=== PATIENT | male | born 1985 | race African-American/Black ===

== ENCOUNTER 2016-09-29 15:17 | Emergency (ER) | payer OTHER ==
[~2016-09-29] VITALS: Ht 205.7 cm; Wt 108.0 kg
[~2016-09-29 15:17] MED LIST: CIPR500T4 PO; CLOB60CR2 TOP; HYDR-906 PO; METR500T PO; ONDA4TAB8 PO
[2016-09-29 15:19] VITALS: Ht 205.7 cm; Wt 108.0 kg
[2016-09-29] MEDS ORDERED: ONDANSETRON 4 MG INJ IV STA (16:13)
[2016-09-29] MEDS ORDERED: SOD CHLORIDE 0.9% 1,000 ML IV STA (16:13)
[2016-09-29] MEDS ORDERED: HYDROmorphONE 1 MG/ML SYG IV STA (16:13)
[2016-09-29 16:51] LABS: ADD SCAN DIFF NO
[2016-09-29 16:52] LABS: BASOPHILS % 0.2 % (0.0-2.0); EOSINOPHILS % 0.5 % (0.0-7.0); HEMATOCRIT 42.3 % (42.0-52.0); HEMOGLOBIN 13.8 g/dl (14.0-18.0); LYMPHOCYTES # 1.9 10^3/ul (0.8-2.9); LYMPHOCYTES % 28.3 % (15.0-51.0); MEAN CORPUSCULAR HEMOGLOBIN 28.5 pg (29.0-33.0); MEAN CORPUSCULAR HGB CONC 32.6 g/dl (32.0-37.0); MEAN CORPUSCULAR VOLUME 87.2 fl (82.0-101.0); MEAN PLATELET VOLUME 9.8 fl (7.4-10.4); MONOCYTE # 0.4 10^3/ul (0.3-0.9); MONOCYTES % 5.9 % (0.0-11.0); NEUTROPHIL # 4.3 10^3/ul (1.6-7.5); NEUTROPHILS % 64.9 % (39.0-77.0); PLATELET COUNT 271 10^3/UL (140-415); RED BLOOD COUNT 4.85 10^6/ul (4.70-6.10); RED CELL DISTRIBUTION WIDTH 14.6 % (11.5-14.5); WHITE BLOOD COUNT 6.6 10^3/ul (4.8-10.8)
[2016-09-29 17:06] LABS: ALBUMIN 4.2 g/dl (3.3-4.9)
[2016-09-29 17:07] LABS: POTASSIUM 3.8 mmol/L (3.5-5.1)
[2016-09-29 17:09] LABS: BILIRUBIN,INDIRECT 0.3 mg/dl (0-1.1); BILIRUBIN,TOTAL 0.3 mg/dl (0.2-1.3); CREATININE 1.24 mg/dl (0.61-1.24)
[2016-09-29 17:10] LABS: ALBUMIN/GLOBULIN RATIO 1.23; CALCIUM 9.2 mg/dl (8.4-10.2); TOTAL PROTEIN 7.6 g/dl (6.1-8.1)
[2016-09-29] MEDS ORDERED: IOHEXOL 300MG/ML 30 ML BTL ONE (17:43)
[2016-09-29] MEDS ORDERED: SOD CHLORIDE 0.9% 100 ML ONE (17:43)
--- NOTE | 2016-09-29 18:02 | RADRPT ---
PROCEDURE: CT Abdomen and Pelvis with contrast. CLINICAL INDICATION: Abdomen and pelvis pain. TECHNIQUE: CT scan of the abdomen and pelvis with contrast was performed. The patient was scanned following the uncomplicated intravenous administration of 100 cc of Omnipaque-300. Coronal and sag ittal reformatted images were obtained from the axial source images. Images were reviewed on a high- resolution PACS workstation. Total exam DLP is 926.58 mGy-cm. CTDIvol is 14.58 mGy. One or more o f the following dose reduction techniques were used: Automated exposure control, adjustment of the m A and/or kV according to patient size, use of iterative reconstruction technique. COMPARISON: CT scan of the abdomen and pelvis dated 05/19/2014. Right upper quadrant abdomen ultr asound dated 03/13/2016. FINDINGS: The lung bases are normal. There is no pleural effusion. The liver is normal in size and attenuation. There is no focal hepatic lesion. The gallbladder and bile ducts are normal. The spleen is normal in size. There is no focal splenic lesion. Both adrenals are normal with no enlargement or mass. The pancreas is unremarkable with no mass or evidence of pancreatitis. Both kidneys demonstrate normal contrast enhancement. There is no renal mass or hydronephrosis. The abdominal aorta is not dilated. There is no retroperitoneal lymphadenopathy or mass. There is no pelvic lymphadenopathy or mass. The bladder and distal ureters are normal. The periappendiceal region is unremarkable with no evidence of appendicitis. The appendix is well se en and appears normal. The bowel and mesentery are normal. There is no free fluid or free gas. The osseous structures are unremarkable with no fracture or lytic lesion. IMPRESSION: 1. No urinary tract calculus or hydronephrosis. 2. No evidence of appendicitis. 3. Unremarkable CT scan of the abdomen and pelvis. RPTAT: QQ .Lionel Martinez MD, MD Date Time Electronically viewed and signed by .Lionel Martinez MD, on 09/29/2016 18:02 .R/
--- NOTE | 2016-09-29 18:20 | ERD ---
ER Documentation Chief Complaint Date/Time DATE: 09/29/16 TIME: 18:17 Chief Complaint N/V with constipation x 2 days HPI This a 30-year-old complains of day 2 of bilateral lower abdominal pain is described as colicky with nausea vomiting and diarrhea. Nausea and vomiting and diarrhea are nonbloody nonbilious. Pain is intermittent. Pain is nonradiating. Patient states she has had these symptoms 10-12 times in the past. No fever no back pain no dysuria no hematuria no cough. ROS All systems reviewed and are negative except as per history of present illness. Medications Home Meds Active Scripts Clobetasol Propionate* (Clobetasol Propionate*) 60 Gm Cream.gm., 1 APPLIC TOP BID, #1 TUB Prov:PAVITHRA HOOD PA-C 03/13/16 Metronidazole* (Flagyl*) 500 Mg Tablet, 500 MG PO TID for 10 Days, TAB Prov:PAVITHRA HOOD PA-C 03/13/16 Ciprofloxacin Hcl* (Ciprofloxacin Hcl*) 500 Mg Tablet, 500 MG PO BID for 10 Days , TAB Prov:PAVITHRA HOOD PA-C 03/13/16 Ondansetron Hcl* (Zofran*) 4 Mg Tablet, 4 MG PO Q6H for NAUSEA AND/OR VOMITING, #30 TAB Prov:PAVITHRA HOOD PA-C 03/13/16 Hydrocodone/Acetaminophen ([place] 5-325 Tablet) 1 Each Tablet, 1 TAB PO Q6H Y for PAIN, #7 TAB Prov:PAVITHRA HOOD PA-C 03/13/16 Allergies Allergies: Coded Allergies: Penicillins (Verified Allergy, Unknown, anaphalix, 09/29/16) PMhx/Soc History of Surgery: No Anesthesia Reaction: No Hx Neurological Disorder: No Hx Respiratory Disorders: No Hx Cardiac Disorders: No Hx Psychiatric Problems: No Hx Miscellaneous Medical Probl: No Hx Alcohol Use: Yes Hx Substance Use: No Hx Tobacco Use: No FmHx Family History: No coronary disease Physical Exam Vitals Vital Signs Date Time Temp Pulse Resp B/P Pulse Ox O2 Delivery O2 Flow Rate FiO2 09/29/16 15:19 98.5 97 18 119/64 97 Physical Exam Const: Well-developed, well-nourished Head: Atraumatic, normocephalic Eyes: Normal Conjunctiva, PERRLA, EOMI, normal sclera, no nystagmus ENT: Normal External Ears, Nose and Mouth, moist mucus membranes. Neck: Full range of motion. No meningismus, no lymphadenopathy. Resp: Clear to auscultation bilaterally, no wheezing, rhonchi, rales Cardio: Regular rate and rhythm, no murmurs, S1 S2 present Abd: Soft, mild bilateral lower quadrant tenderness, non distended. Normal bowel sounds, no guarding or rebound, no pulsitile abdominal masses or bruits Skin: No petechiae or rashes, no ecchymosis , no maculopapular rash Back: No midline or flank tenderness Ext: No cyanosis, or edema, FROM x 4, normal inspection, neurovascularly intact x 4 Neur: Awake and alert, STR 5/5 x 4, sensation intact x 4, no focal findings, cerebellum intact Psych: Normal Mood and Affect Result Diagram: 09/29/16 1641 09/29/16 1641 Results 24 hrs Laboratory Tests Test 09/29/16 16:41 White Blood Count 6.610^3/ul Red Blood Count 4.8510^6/ul Hemoglobin 13.8g/dl Hematocrit 42.3% Mean Corpuscular Volume 87.2fl Mean Corpuscular Hemoglobin 28.5pg Mean Corpuscular Hemoglobin Concent 32.6g/dl Red Cell Distribution Width 14.6% Platelet Count 50206^3/UL Mean Platelet Volume 9.8fl Neutrophils % 64.9% Lymphocytes % 28.3% Monocytes % 5.9% Eosinophils % 0.5% Basophils % 0.2% Nucleated Red Blood Cells % 0.0/100WBC Neutrophils # 4.310^3/ul Lymphocytes # 1.910^3/ul Monocytes # 0.410^3/ul Eosinophils # 0.010^3/ul Basophils # 0.010^3/ul Nucleated Red Blood Cells # 0.010^3/ul Sodium Level 141mmol/L Potassium Level 3.8mmol/L Chloride Level 104mmol/L Carbon Dioxide Level 27mmol/L Anion Gap 14 Blood Urea Nitrogen 10mg/dl Creatinine 1.24mg/dl Glucose Level 87mg/dl Calcium Level 9.2mg/dl Total Bilirubin 0.3mg/dl Direct Bilirubin 0.00mg/dl Indirect Bilirubin 0.3mg/dl Aspartate Amino Transf (AST/SGOT) 25IU/L Alanine Aminotransferase (ALT/SGPT) 20IU/L Alkaline Phosphatase 48IU/L Total Protein 7.6g/dl Albumin 4.2g/dl Globulin 3.40g/dl Albumin/Globulin Ratio 1.23 Lipase 62U/L Current Medications Medications (Trade) Dose Ordered Sig/Adriana Route PRN Reason Start Time Stop Time Status Last Admin Dose Admin Sodium Chloride (NS) 1,000 ml @ 1,000 mls/hr Q1H STAT IV 09/29/16 16:13 09/29/16 17:12 DC 09/29/16 16:32 Hydromorphone HCl (Dilaudid) 1 mg ONCE STAT IV 09/29/16 16:13 09/29/16 16:15 DC 09/29/16 16:31 Ondansetron HCl (Zofran Inj) 4 mg ONCE STAT IV 09/29/16 16:13 09/29/16 16:15 DC 09/29/16 16:31 IV Flush 10 ml 10 ml STK-MED ONCE .ROUTE 09/29/16 17:43 09/29/16 17:44 DC Sodium Chloride (NS) 100 ml @ ud STK-MED ONCE .ROUTE 09/29/16 17:43 09/29/16 17:44 DC Iohexol (Omnipaque 300mg/ ml) 30 ml STK-MED ONCE .ROUTE 09/29/16 17:43 09/29/16 17:44 DC Procedures/MDM PROCEDURE: CT Abdomen and Pelvis with contrast. CLINICAL INDICATION: Abdomen and pelvis pain. TECHNIQUE: CT scan of the abdomen and pelvis with contrast was performed. The patient was scanned following the uncomplicated intravenous administration of 100 cc of Omnipaque-300. Coronal and sagittal reformatted images were obtained from the axial source images. Images were reviewed on a high- resolution PACS workstation. Total exam DLP is 926.58 mGy-cm. CTDIvol is 14.58 mGy. One or more of the following dose reduction techniques were used: Automated exposure control, adjustment of the mA and/or kV according to patient size, use of iterative reconstruction technique. COMPARISON: CT scan of the abdomen and pelvis dated 05/19/2014. Right upper quadrant abdomen ultrasound dated 03/13/2016. FINDINGS: The lung bases are normal. There is no pleural effusion. The liver is normal in size and attenuation. There is no focal hepatic lesion. The gallbladder and bile ducts are normal. The spleen is normal in size. There is no focal splenic lesion. Both adrenals are normal with no enlargement or mass. The pancreas is unremarkable with no mass or evidence of pancreatitis. Both kidneys demonstrate normal contrast enhancement. There is no renal mass or hydronephrosis. The abdominal aorta is not dilated. There is no retroperitoneal lymphadenopathy or mass. There is no pelvic lymphadenopathy or mass. The bladder and distal ureters are normal. The periappendiceal region is unremarkable with no evidence of appendicitis. The appendix is well seen and appears normal. The bowel and mesentery are normal. There is no free fluid or free gas. The osseous structures are unremarkable with no fracture or lytic lesion. IMPRESSION: 1. No urinary tract calculus or hydronephrosis. 2. No evidence of appendicitis. 3. Unremarkable CT scan of the abdomen and pelvis. RPTAT: QQ .Lionel Martinez MD, MD Date Time Electronically viewed and signed by .Lionel Martinez MD, MD on 09/29/2016 18:02 .R/ CC: ZHANG NICOLAS DO Patient is had these symptoms 2 and 12 times in the past he may have some type of IBD and recommended him seeing a party plan sales unit advisor for colonoscopy. He also may have some type of food intolerance. We will treat symptomatically Departure Diagnosis: Primary Impression: Abdominal pain Abdominal location: lower abdomen, unspecified Qualified Code: R10.30 - Lower abdominal pain Additional Impression: Vomiting and diarrhea Condition: Stable ZHANG NICOLAS DO Sep 29, 2016 18:20
[2016-09-29] MEDS ORDERED: ONDA4TAB14 PO (18:23)
[2016-09-29] MEDS ORDERED: DIPH1TAB PO (18:23)
[2016-09-29] MEDS ORDERED: HYDR-902 PO (18:23)
[2016-09-29 18:50] VITALS: BP 119/64; RESP 20
== END 2016-09-29 18:51 | disposition home or self-care (01) ==
LOC: FTE 15:17
DX: R10.30 Lower abdominal pain, unspecified (principal); R11.10 Vomiting, unspecified; R19.7 Diarrhea, unspecified
CPT/HCPCS: 36415; 74177; 80053; 83690; 85025; 96374; 96375; J1170; J2405; J7030; Q9967; Z7502; Z7610

== ENCOUNTER 2017-01-31 10:14 | Emergency (ER) | payer OTHER ==
[~2017-01-31] VITALS: Wt 107.5 kg
[~2017-01-31 10:14] MED LIST changes: +DIPH1TAB PO; +HYDR-902 PO; +ONDA4TAB14 PO
[2017-01-31] MEDS ORDERED: morphine 4 MG/ML VIAL IV STA (10:53)
[2017-01-31] MEDS ORDERED: ONDANSETRON 4 MG INJ IV STA (10:53)
[2017-01-31 11:15] LABS: BASOPHILS % 0.4 % (0.0-2.0); EOSINOPHILS # 0.1 10^3/ul (0.0-0.5); HEMATOCRIT 44.1 % (42.0-52.0); HEMOGLOBIN 14.6 g/dl (14.0-18.0); LYMPHOCYTES # 1.9 10^3/ul (0.8-2.9); LYMPHOCYTES % 26.2 % (15.0-51.0); MEAN CORPUSCULAR HEMOGLOBIN 28.1 pg (29.0-33.0); MEAN CORPUSCULAR HGB CONC 33.1 g/dl (32.0-37.0); MEAN PLATELET VOLUME 9.7 fl (7.4-10.4); MONOCYTE # 0.5 10^3/ul (0.3-0.9); MONOCYTES % 6.6 % (0.0-11.0); NEUTROPHILS % 65.4 % (39.0-77.0); PLATELET COUNT 287 10^3/UL (140-415); RED BLOOD COUNT 5.19 10^6/ul (4.70-6.10); RED CELL DISTRIBUTION WIDTH 14.2 % (11.5-14.5); WHITE BLOOD COUNT 7.2 10^3/ul (4.8-10.8)
[2017-01-31 11:24] LABS: ADD UMIC NO; UR ASCORBIC ACID NEGATIVE (NEGATIVE); UR BILIRUBIN (Dip) NEGATIVE (NEGATIVE); UR BLOOD (Dip) NEGATIVE (NEGATIVE); UR CLARITY CLEAR (CLEAR); UR COLOR YELLOW (YELLOW); UR GLUCOSE (Dip) NEGATIVE (NEGATIVE); UR KETONES (Dip) NEGATIVE (NEGATIVE); UR LEUKOCYTE ESTERASE (Dip) NEGATIVE Leu/ul (NEGATIVE); UR NITRITE (Dip) NEGATIVE (NEGATIVE); UR SPECIFIC GRAVITY (Dip) 1.019 (1.003-1.030); UR TOTAL PROTEIN (Dip) NEGATIVE (NEGATIVE); UR UROBILINOGEN (Dip) NEGATIVE (NEGATIVE)
[2017-01-31 11:43] LABS: ALBUMIN 4.9 g/dl (3.3-4.9); ALBUMIN/GLOBULIN RATIO 1.32; BILIRUBIN,INDIRECT 0.4 mg/dl (0-1.1); BILIRUBIN,TOTAL 0.4 mg/dl (0.2-1.3); CALCIUM 9.6 mg/dl (8.4-10.2); CREATININE 0.91 mg/dl (0.61-1.24); POTASSIUM 4.4 mmol/L (3.5-5.1); TOTAL PROTEIN 8.6 g/dl (6.1-8.1)
[2017-01-31] MEDS ORDERED: FAMOTIDINE 20 MG TAB PO ONE (12:00)
--- NOTE | 2017-01-31 12:12 | ERD ---
ER Documentation Chief Complaint Date/Time DATE: 01/31/17 TIME: 12:08 Chief Complaint ABD PAIN, NAUSEA, VOMITING, ONSET THIS AM HPI Is a 31-year-old male who presents the emergency department today complaining of sharp abdominal pain that started this morning as well as persistent vomiting. States he has had this several times in the past. States that this feels the same. . States he smokes marijuana occasionally.Denies any fevers, diarrhea, dysuria. ROS All systems reviewed and are negative except as per history of present illness. Medications Home Meds Active Scripts Electrolyte,Oral (Pedialyte) 1,000 Ml Solution, 100 ML PO Q6 Y for VOMITTING, # 1000 ML Prov:ABBIE JEFFRIES PA-C 01/31/17 Famotidine* (Pepcid*) 20 Mg Tablet, 20 MG PO BID for 14 Days, TAB Prov:ABBIE JEFFRIES PA-C 01/31/17 Ondansetron Hcl* (Zofran*) 4 Mg Tablet, 4 MG PO Q6H for NAUSEA AND/OR VOMITING, #30 TAB Prov:ABBIE JEFFRIES PA-C 01/31/17 Acetaminophen* (Tylophen*) 500 Mg Capsule, 1 CAP PO Q6H Y for PAIN AND OR ELEVATED TEMP, #30 CAP Prov:ABBIE JEFFRIES PA-C 01/31/17 Diphenoxylate HCl/Atropine (Lomotil 2.5-0.025 mg Tablet) 1 Each Tablet, 1 TAB PO QID Y for DIARRHEA, #10 TAB Prov:ZHANG NICOLAS DO 09/29/16 Ondansetron (Ondansetron Odt) 4 Mg Tab.rapdis, 4 MG PO Q6H Y for NAUSEA AND/OR VOMITING, #10 TAB Prov:ZAHNG NICOLAS DO 09/29/16 Hydrocodone/Acetaminophen ([place] 10-325 Tablet) 1 Each Tablet, 1 TAB PO Q6H Y for PAIN, #20 TAB Prov:MARINA NICOLASSTDICK Villatoro DO 09/29/16 Clobetasol Propionate* (Clobetasol Propionate*) 60 Gm Cream.gm., 1 APPLIC TOP BID, #1 TUB Prov:PAVITHRA HOOD PA-C 03/13/16 Metronidazole* (Flagyl*) 500 Mg Tablet, 500 MG PO TID for 10 Days, TAB Prov:PAVITHRA HOOD PA-C 03/13/16 Ciprofloxacin Hcl* (Ciprofloxacin Hcl*) 500 Mg Tablet, 500 MG PO BID for 10 Days , TAB Prov:PAVITHRA HOOD PA-C 03/13/16 Ondansetron Hcl* (Zofran*) 4 Mg Tablet, 4 MG PO Q6H for NAUSEA AND/OR VOMITING, #30 TAB Prov:PAVITHRA HOOD PA-C 03/13/16 Hydrocodone/Acetaminophen ([place] 5-325 Tablet) 1 Each Tablet, 1 TAB PO Q6H Y for PAIN, #7 TAB Prov:PAVITHRA HOOD PA-C 03/13/16 Allergies Allergies: Coded Allergies: Penicillins (Verified Allergy, Unknown, anaphalix, 09/29/16) PMhx/Soc History of Surgery: No Anesthesia Reaction: No Hx Neurological Disorder: No Hx Respiratory Disorders: No Hx Cardiac Disorders: No Hx Psychiatric Problems: No Hx Miscellaneous Medical Probl: No Hx Alcohol Use: Yes Hx Substance Use: No Hx Tobacco Use: No Physical Exam Vitals Vital Signs Date Time Temp Pulse Resp B/P Pulse Ox O2 Delivery O2 Flow Rate FiO2 01/31/17 10:16 98.2 83 18 136/100 98 Physical Exam Const: No acute distress Head: Atraumatic Eyes: Normal Conjunctiva ENT: Normal External Ears, Nose and Mouth. Neck: Full range of motion..~ No meningismus. Resp: Clear to auscultation bilaterally Cardio: Regular rate and rhythm, no murmurs Abd: Soft, epigastric, diffuse lower abdominal pain non distended. Normal bowel sounds. No specific tenderness McBurney's Skin: No petechiae or rashes Back: No midline or flank tenderness Ext: No cyanosis, or edema Neur: Awake and alert Psych: Normal Mood and Affect Result Diagram: 01/31/17 1100 01/31/17 1100 Results 24 hrs Laboratory Tests Test 01/31/17 11:00 White Blood Count 7.210^3/ul Red Blood Count 5.1910^6/ul Hemoglobin 14.6g/dl Hematocrit 44.1% Mean Corpuscular Volume 85.0fl Mean Corpuscular Hemoglobin 28.1pg Mean Corpuscular Hemoglobin Concent 33.1g/dl Red Cell Distribution Width 14.2% Platelet Count 31430^3/UL Mean Platelet Volume 9.7fl Neutrophils % 65.4% Lymphocytes % 26.2% Monocytes % 6.6% Eosinophils % 1.0% Basophils % 0.4% Nucleated Red Blood Cells % 0.0/100WBC Neutrophils # (Manual) 510^3/ul Lymphocytes # 1.910^3/ul Monocytes # 0.510^3/ul Eosinophils # 0.110^3/ul Basophils # 0.010^3/ul Nucleated Red Blood Cells # 0.010^3/ul Urine Color YELLOW Urine Clarity CLEAR Urine pH 7.0 Urine Specific [place] 1.019 Urine Ketones NEGATIVEmg/dL Urine Nitrite NEGATIVEmg/dL Urine Bilirubin NEGATIVEmg/dL Urine Urobilinogen NEGATIVEmg/dL Urine Leukocyte Esterase NEGATIVELeu/ul Urine Hemoglobin NEGATIVEmg/dL Urine Glucose NEGATIVEmg/dL Urine Total Protein NEGATIVEmg/dl Sodium Level 138mmol/L Potassium Level 4.4mmol/L Chloride Level 102mmol/L Carbon Dioxide Level 25mmol/L Anion Gap 15 Blood Urea Nitrogen 13mg/dl Creatinine 0.91mg/dl Glucose Level 96mg/dl Calcium Level 9.6mg/dl Total Bilirubin 0.4mg/dl Direct Bilirubin 0.00mg/dl Indirect Bilirubin 0.4mg/dl Aspartate Amino Transf (AST/SGOT) 40IU/L Alanine Aminotransferase (ALT/SGPT) 49IU/L Alkaline Phosphatase 47IU/L Total Protein 8.6g/dl Albumin 4.9g/dl Globulin 3.70g/dl Albumin/Globulin Ratio 1.32 Lipase 64U/L Current Medications Medications (Trade) Dose Ordered Sig/Adriana Route PRN Reason Start Time Stop Time Status Last Admin Dose Admin Morphine Sulfate (morphine) 4 mg ONCE STAT IV 01/31/17 10:53 01/31/17 10:56 DC 01/31/17 11:08 Ondansetron HCl (Zofran Inj) 4 mg ONCE STAT IV 01/31/17 10:53 01/31/17 10:56 DC 01/31/17 11:07 Famotidine (Pepcid) 20 mg ONCE ONCE PO 01/31/17 12:00 8/18/17 12:01 [place] 01/31/17 12:01 Procedures/[facility] This a 31-year-old male who presents to the emergency department today complaining of abdominal pain and vomiting that started this morning. Patient has had similar symptoms in the past. Upon review of patient's medical records patient was seen here in September 2016 for the same complaints and had a negative workup including a negative CT scan. Today on physical exam patient had epigastric and bilateral lower quadrant pain however no specific tenderness at McBurney's. Patient is afebrile and otherwise well-appearing. I did repeat laboratory workup today Laboratory work shows no elevated white blood cell count. He is not anemic. Platelets are within normal limits. Electrolytes are within normal limits. Glucose within normal limits. Liver enzymes are within normal limits. Lipase within normal limits. UA is negative for infection. Patient symptoms at this time is consistent with abdominal pain and vomiting of uncertain etiology. Have explained him that it may be also brought on by smoking marijuana. 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 I did discuss obtaining a CT scan with both the patient and patient has declined and Dr. Allen feel this is reasonable especially given patient's negative laboratory workup and nonspecific abdominal pain without fever. Low suspicion for acute surgical abdomen, pancreatitis, acute appendicitis Patient was given Zofran, Pepcid, morphine here in the emergency department and symptoms improved significantly. When I went back to check on the patient he was sitting up in another bed talking on his phone. He reported his pain was down from a 10 to a 2 on a pain scale Patient given a prescription for Pepcid, Zofran, Tylenol Pedialyte for home At this time the patient is stable for discharge and outpatient management. Patient should follow up with their PCP in the next 1-2 days. They may return to the emergency department sooner for any persistent or worsening of symptoms. Patient understood and agreed with the plan. Departure Diagnosis: Primary Impression: Abdominal pain Abdominal location: generalized Qualified Code: R10.84 - Generalized abdominal pain Additional Impression: Vomiting Vomiting type: unspecified Vomiting Intractability: non-intractable Nausea presence: unspecified Qualified Code: R11.10 - Non-intractable vomiting, presence of nausea not specified, unspecified vomiting type Condition: ABBIE Nelson PA-C Jan 31, 2017 12:12
[2017-01-31] MEDS ORDERED: ACET500C5 PO (12:15)
[2017-01-31] MEDS ORDERED: ONDA4TAB8 PO (12:15)
[2017-01-31] MEDS ORDERED: FAMO-96 PO (12:15)
[2017-01-31] MEDS ORDERED: ELEC100080 PO (12:17)
== END 2017-01-31 12:32 | disposition home or self-care (01) ==
LOC: FTE 10:14
DX: R10.84 Generalized abdominal pain (principal); R11.10 Vomiting, unspecified
CPT/HCPCS: 36415; 80053; 81003; 83690; 85025; 96374; 96375; J2270; J2405; Z7502; Z7610

== ENCOUNTER 2017-05-17 18:25 | Emergency (ER) | payer OTHER ==
[~2017-05-17] VITALS: Ht 208.3 cm; Wt 104.5 kg
[~2017-05-17 18:25] MED LIST changes: +ACET500C5 PO; +ELEC100080 PO; +FAMO-96 PO
[2017-05-17 18:35] VITALS: Ht 208.3 cm; Wt 104.5 kg
[2017-05-17] MEDS ORDERED: HYDROmorphONE 1 MG/ML SYG IV STA (18:56)
[2017-05-17] MEDS ORDERED: MAGNESIUM SULFATE 2 GM, MULTIVITAMINS 10 ML, THIAMINE 100 MG, FOLIC ACID 1 MG in SOD CH... IV STA (18:56)
[2017-05-17] MEDS ORDERED: ONDANSETRON 4 MG INJ IV STA ×2 (18:56→21:27)
[2017-05-17] MEDS ORDERED: FAMOTIDINE 20 MG INJ IV STA (18:56)
[2017-05-17] MEDS ORDERED: SOD CHLORIDE 0.9% 1,000 ML IV STA (18:56)
[2017-05-17 19:09] LABS: BASOPHILS % 0.1 % (0.0-2.0); EOSINOPHILS % 0.1 % (0.0-7.0); HEMOGLOBIN 13.4 g/dl (14.0-18.0); LYMPHOCYTES # 1.2 10^3/ul (0.8-2.9); LYMPHOCYTES % 8.1 % (15.0-51.0); MEAN CORPUSCULAR HEMOGLOBIN 28.2 pg (29.0-33.0); MEAN CORPUSCULAR HGB CONC 33.5 g/dl (32.0-37.0); MEAN CORPUSCULAR VOLUME 84.2 fl (82.0-101.0); MEAN PLATELET VOLUME 9.8 fl (7.4-10.4); MONOCYTE # 0.7 10^3/ul (0.3-0.9); MONOCYTES % 4.9 % (0.0-11.0); NEUTROPHIL # 12.6 10^3/ul (1.6-7.5); NEUTROPHILS % 86.5 % (39.0-77.0); PLATELET COUNT 278 10^3/UL (140-415); RED BLOOD COUNT 4.75 10^6/ul (4.70-6.10); RED CELL DISTRIBUTION WIDTH 13.2 % (11.5-14.5); WHITE BLOOD COUNT 14.6 10^3/ul (4.8-10.8)
--- NOTE | 2017-05-17 19:20 | ERD ---
ER Documentation Chief Complaint Chief Complaint HPI This is a 31-year-old male with a known history of alcoholic gastritis who consumes alcohol on a daily basis. His girlfriend brought him to the emergency department today as he developed a sudden onset of abdominal pain roughly for hours prior to arrival. 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 He stated the pain was persistent with no alleviating or exacerbating factors. The pain was not positional. He indicates this is similar nature to his previous episodes of alcoholic gastritis and has had multiple episodes of nonbloody nonbilious emesis over the past 4 hours. He has had no diarrhea. He had no hemoptysis hematemesis or melanotic stools. He states his last consumption of alcohol was roughly 10 hours prior to arrival. He denies any chest pain or pressure that radiates to the neck arm back or jaw. He denies any illicit drug use. He did not take any analgesic medication prior to arrival but did take Zofran with no improvement of his symptoms. ROS All systems reviewed and are negative except as per history of present illness. Medications Home Meds Active Scripts Electrolyte,Oral (Pedialyte) 1,000 Ml Solution, 100 ML PO Q6 Y for VOMITTING, # 1000 ML Prov:ABBIE JEFFRIES PA-C 01/31/17 Famotidine* (Pepcid*) 20 Mg Tablet, 20 MG PO BID for 14 Days, TAB Prov:ABBIE JEFFRIES PA-C 01/31/17 Ondansetron Hcl* (Zofran*) 4 Mg Tablet, 4 MG PO Q6H for NAUSEA AND/OR VOMITING, #30 TAB Prov:ABBIE JEFFRIES PA-C 01/31/17 Acetaminophen* (Tylophen*) 500 Mg Capsule, 1 CAP PO Q6H Y for PAIN AND OR ELEVATED TEMP, #30 CAP Prov:ABBIE JEFFRIES PA-C 01/31/17 Diphenoxylate HCl/Atropine (Lomotil 2.5-0.025 mg Tablet) 1 Each Tablet, 1 TAB PO QID Y for DIARRHEA, #10 TAB Prov:ZHANG NICOLAS DO 09/29/16 Ondansetron (Ondansetron Odt) 4 Mg Tab.rapdis, 4 MG PO Q6H Y for NAUSEA AND/OR VOMITING, #10 TAB Prov:THANIASEVERINOMARINA SANCHEZCHERRY Zeinab. DO 09/29/16 Hydrocodone/Acetaminophen ([place] 10-325 Tablet) 1 Each Tablet, 1 TAB PO Q6H Y for PAIN, #20 TAB Prov:TARSHA NICOLASEVANSheila Arriola. DO 09/29/16 Clobetasol Propionate* (Clobetasol Propionate*) 60 Gm Cream.gm., 1 APPLIC TOP BID, #1 TUB Prov:PAVITHRA HOOD PA-C 03/13/16 Metronidazole* (Flagyl*) 500 Mg Tablet, 500 MG PO TID for 10 Days, TAB Prov:PAVITHRA HOOD PA-C 03/13/16 Ciprofloxacin Hcl* (Ciprofloxacin Hcl*) 500 Mg Tablet, 500 MG PO BID for 10 Days , TAB Prov:PAVITHRA HOOD PA-C 03/13/16 Ondansetron Hcl* (Zofran*) 4 Mg Tablet, 4 MG PO Q6H for NAUSEA AND/OR VOMITING, #30 TAB Prov:PAVITHRA HOOD PA-C 03/13/16 Hydrocodone/Acetaminophen ([place] 5-325 Tablet) 1 Each Tablet, 1 TAB PO Q6H Y for PAIN, #7 TAB Prov:PAVITHRA HOOD PA-C 03/13/16 Allergies Allergies: Coded Allergies: Penicillins (Verified Allergy, Unknown, anaphalix, 09/29/16) PMhx/Soc History of Surgery: No Anesthesia Reaction: No Hx Neurological Disorder: No Hx Respiratory Disorders: No Hx Cardiac Disorders: No Hx Psychiatric Problems: No Hx Miscellaneous Medical Probl: No Hx Alcohol Use: No Hx Substance Use: No Hx Tobacco Use: No Physical Exam Vitals Vital Signs Date Time Temp Pulse Resp B/P Pulse Ox O2 Delivery O2 Flow Rate FiO2 05/17/17 20:00 53 17 135/89 99 05/17/17 18:35 98.6 60 16 162/92 99 05/17/17 18:30 98.6 60 16 162/92 99 Room Air Physical Exam Constitutional:Well-developed. Well-nourished. HEENT:Normocephalic. Atraumatic.Pupils were equal round reactive to light. Moist mucous membranes.No tonsillar exudates. Neck: No nuchal rigidity. No lymphadenopathy. No posterior cervical spine tenderness or step-offs. Respiratory: Not using accessory muscles of respiration.Lungs were clear to auscultation bilaterally. No rhonchi. No rales. No wheezing. Cardiovascular: Regular rate regular rhythm.No murmurs. No rubs were appreciated.S1, S2 normal. Distal pulses are palpable 2+ bilaterally. GI: Abdomen was soft. Tenderness in the epigastric region. No tenderness in the right upper quadrant negative Lawrence sign and no tenderness over McBurney's point. Psoas sign negative. Obturator sign negative. No distention. No pulsatile abdominal masses or bruits. No rebound. No guarding. Bowel sounds were present and normal. Muscle skeletal: Full range of motion of both the upper and lower extremities bilaterally.Normal muscle tone.No assymetrical calf tenderness or swelling. Skin: Diaphoresis. No petechia, no purpura. No lesions on the palms or the soles of the feet. No maculopapular rash. NEURO: Patient was alert, awake, orientated x3.No facial droop. Gait observed and normal with no ataxia.Speech had regular rate and rhythm. No focal neurological deficits. Result Diagram: 05/17/17183005/17/171830 Results 24 hrs Laboratory Tests Test 05/17/17 18:31 White Blood Count 14.610^3/ul Red Blood Count 4.7510^6/ul Hemoglobin 13.4g/dl Hematocrit 40.0% Mean Corpuscular Volume 84.2fl Mean Corpuscular Hemoglobin 28.2pg Mean Corpuscular Hemoglobin Concent 33.5g/dl Red Cell Distribution Width 13.2% Platelet Count 58637^3/UL Mean Platelet Volume 9.8fl Neutrophils % 86.5% Lymphocytes % 8.1% Monocytes % 4.9% Eosinophils % 0.1% Basophils % 0.1% Nucleated Red Blood Cells % 0.0/100WBC Neutrophils # 12.610^3/ul Lymphocytes # 1.210^3/ul Monocytes # 0.710^3/ul Eosinophils # 0.010^3/ul Basophils # 0.010^3/ul Nucleated Red Blood Cells # 0.010^3/ul Prothrombin Time 12.6Sec Prothrombin Time Ratio 1.0 INR International Normalized Ratio 0.93 Activated Partial Thromboplast Time 24.2Sec Sodium Level 140mmol/L Potassium Level 4.3mmol/L Chloride Level 107mmol/L Carbon Dioxide Level 24mmol/L Anion Gap 13 Blood Urea Nitrogen 12mg/dl Creatinine 0.93mg/dl Glucose Level 111mg/dl Calcium Level 9.1mg/dl Total Bilirubin 0.4mg/dl Direct Bilirubin 0.00mg/dl Indirect Bilirubin 0.4mg/dl Aspartate Amino Transf (AST/SGOT) 31IU/L Alanine Aminotransferase (ALT/SGPT) 34IU/L Alkaline Phosphatase 44IU/L Troponin I < 0.012ng/ml Total Protein 7.1g/dl Albumin 4.2g/dl Globulin 2.90g/dl Albumin/Globulin Ratio 1.44 Amylase Level 73U/L Lipase 79U/L Ethyl Alcohol Level < 10.0mg/dl Current Medications Medications (Trade) Dose Ordered Sig/Adriana Route PRN Reason Start Time Stop Time Status Last Admin Dose Admin Sodium Chloride (NS) 1,000 ml @ 1,000 mls/hr Q1H STAT IV 05/17/17 18:56 05/17/17 19:55 DC 05/17/17 19:17 Hydromorphone HCl (Dilaudid) 1 mg ONCE STAT IV 05/17/17 18:56 05/17/17 18:57 DC 05/17/17 19:11 Ondansetron HCl (Zofran Inj) 4 mg ONCE STAT IV 05/17/17 18:56 05/17/17 18:57 DC 05/17/17 19:11 Famotidine 20 mg 20 mg ONCE STAT IV 05/17/17 18:56 05/17/17 18:57 DC 05/17/17 19:11 Magnesium Sulfate/ Multivitamins/ Thiamine HCl/ Folic Acid/Sodium Chloride (Magnesium Sulfate/Mvi Adult/ Vitamin B1/Folic Acid/NS) 1,015.2 ml @ 500 mls/ hr Q2H2M STAT IV 05/17/17 18:56 05/17/17 20:57 DC 05/17/17 21:15 IV Flush 10 ml 10 ml STK-MED ONCE .ROUTE 05/17/17 21:27 05/17/17 21:28 DC Sodium Chloride (NS) 100 ml @ ud STK-MED ONCE .ROUTE 05/17/17 21:27 05/17/17 21:28 DC Iohexol (Omnipaque 300mg/ ml) 150 ml STK-MED ONCE .ROUTE 05/17/17 21:27 05/17/17 21:28 DC Hydromorphone HCl (Dilaudid) 1 mg ONCE ONCE IV 05/17/17 21:37 05/17/17 21:38 DC 05/17/17 21:48 Ondansetron HCl (Zofran Inj) 4 mg ONCE ONCE IV 05/17/17 21:37 05/17/17 21:38 DC 05/17/17 21:47 Ondansetron HCl (Zofran Inj) 4 mg ONCE STAT IV 05/17/17 21:27 05/17/17 21:28 DC 05/17/17 21:46 Procedures/MDM The patient presented to the emergency department with epigastric pain. My differential diagnosis included but was not limited to abdominal aortic aneurysm , choledocholithiasis, gallstone ileus, renal colic, pyelonephritis, pancreatitis, peptic ulcer disease, atypical myocardical infarction, mesenteric ischemia, GERD, pulmonary infarction. The patient was placed on a hotbed operator, continuous pulse oximetry and IV access was established by nursing staff. An EKG was obtained to rule out myocardial ischemia. There was no elevation of LFTs to suggest ductal obstruction, cholangitis, cholecystiitis or hepatitis. Given that the urinalysis did not show bilirubinuria, my suspicion for common duct obstruction or hepatitis was low. 12 Lead EKG tracing ordered and reviewed by myself showed: Sinus brdaycardia of 47 bpm and no arrhythmia. ND interval normal. QRS duration normal. ST segment elevation in all leads with a concave upstroke and no reciprocal changes consistent with benign early repolarization No ST segment depression. No changes consistent with acute ischemia. The patient and had received IV fluids multiple doses of antiemetics and had complete resolution of his symptoms. There is no evidence of pancreatitis. I did obtain a CT scan which did not show a small large bowel obstruction nor did the patient have any signs of a surgical abdomen on physical exam. I felt his symptoms likely result of alcoholic gastritis. Present but there is no evidence of impending delirium tremors. Observation Note: Time: 4 hours Family Hx: No Hypertension Evaluation: Multiple exams showed improving symptoms and no evidence of peritoneal signs or surgical abdomen. The patient was discharged home in [facility] condition. They were instructed to return to the emergency department at any time if there was any worsening of their condition. The patient stated they would follow up with their PCP in the next 24-48 hours to initiate a suitable medication regimen under the care of their PCP as well as to allow their PCP to monitor any drug reactions. The patient was discharged home with prescriptions after they gave informed consent to the new medication. They were also fully informed by myself on the adverse effects and adverse drug interactions in order to provide adequate safeguards to prevent possible adverse reactions to medications. Departure Diagnosis: Primary Impression: Alcoholic gastritis without bleeding Chronicity: acute Qualified Code: K29.20 - Acute alcoholic gastritis without hemorrhage Condition: Fair OLEG VELEZ May 17, 2017 19:20
[2017-05-17 19:23] LABS: INR 0.93; PARTIAL THROMBOPLASTIN TIME 24.2 Sec (25.0-35.0); PROTIME 12.6 Sec (11.9-14.9)
[2017-05-17 20:05] LABS: TROPONIN-I < 0.012 ng/ml (0.00-0.12)
[2017-05-17 20:34] LABS: ALANINE AMINOTRANSFERASE 34 IU/L (13-69); ALBUMIN 4.2 g/dl (3.3-4.9); ALBUMIN/GLOBULIN RATIO 1.44; ALKALINE PHOSPHATASE 44 IU/L (42-121); AMYLASE 73 U/L (11-123); ANION GAP 13 (8-16); ASPARTATE AMINO TRANSFERASE 31 IU/L (15-46); BILIRUBIN,INDIRECT 0.4 mg/dl (0-1.1); BILIRUBIN,TOTAL 0.4 mg/dl (0.2-1.3); BLOOD UREA NITROGEN 12 mg/dl (7-20); CALCIUM 9.1 mg/dl (8.4-10.2); CARBON DIOXIDE 24 mmol/L (21-31); CHLORIDE 107 mmol/L (97-110); CREATININE 0.93 mg/dl (0.61-1.24); GLUCOSE 111 mg/dl (70-220); POTASSIUM 4.3 mmol/L (3.5-5.1); SODIUM 140 mmol/L (135-144); TOTAL PROTEIN 7.1 g/dl (6.1-8.1)
[2017-05-17 20:35] LABS: ETHANOL < 10.0 mg/dl
[2017-05-17] MEDS ORDERED: SOD CHLORIDE 0.9% 100 ML ONE (21:27)
[2017-05-17] MEDS ORDERED: IOHEXOL 300MG/ML 150 ML BTL ONE (21:27)
[2017-05-17] MEDS ORDERED: ONDANSETRON 4 MG INJ IV ONE (21:37)
[2017-05-17] MEDS ORDERED: HYDROmorphONE 1 MG/ML SYG IV ONE (21:37)
[2017-05-17] MEDS ORDERED: ONDA4TAB14 PO (22:35)
[2017-05-17 23:00] VITALS: PULSE 57
[2017-05-17] MEDS ORDERED: NAPR-260 PO (23:39)
[2017-05-17 23:41] VITALS: TEMP 98.7
--- NOTE | 2017-05-17 23:49 | RADRPT ---
PROCEDURE: CT abdomen and pelvis with contrast. CLINICAL INDICATION: Abdominal pain. TECHNIQUE: CT scan of the abdomen and pelvis with contrast was performed after the uneventful intrav enous administration of 100 cc of Omnipaque-300. Coronal and sagittal reformatted images were obtain ed from the axial source images. The total exam CTDI equals 12.85 mGy and the total exam DLP equals 820.85 mGy-cm. DICOM images are available. One or more of the following dose reduction techniques were used: - Automated exposure control. - Adjustment of the mA and/or kV according to patient size. - Use of iterative reconstruction technique. COMPARISON: CT dated 09/29/2016. FINDINGS: Visualized lower thorax: The visualized lung bases are clear. The visualized heart is unremarkable. Hepatobiliary system and spleen: The liver is normal in size and density with no focal hepatic lesi on identified. There is no intra or extrahepatic biliary ductal dilatation. The gallbladder is unrem arkable. The spleen is unremarkable. The pancreas is unremarkable. Adrenal glands and genitourinary system: The adrenal glands are unremarkable. There are no renal ma sses or hydronephrosis. The urinary bladder is unremarkable. The prostate gland and seminal vesicles are unremarkable. Gastrointestinal system: There is no bowel wall thickening or evidence of obstruction. There is non specific dilatation of the appendix, which measures 10 mm in diameter, without associated periappend iceal inflammatory change. Peritoneum, vascular system, lymphatics: There is no free intraperitoneal air or free fluid. There is no mesenteric or retroperitoneal adenopathy. The aorta is nonaneurysmal. Musculoskeletal system and soft tissues: There is moderate to severe degenerative enthesopathy at L 5-S1. There are no concerning osseous lesions. The soft tissues are unremarkable. IMPRESSION: 1. No acute abnormality or findings to suggest a source of the patient's symptoms. 2. Nonspecific dilatation of the appendix measuring 10 mm in diameter without additional findings t o suggest acute appendicitis. RPTAT: HLBP .Jermain Kendall MD, MD Date Time Electronically viewed and signed by .Jermain Kendall MD, MD on 05/17/2017 23:48 .P/
[2017-05-18 00:04] VITALS: BP 125/76; RESP 14
== END 2017-05-18 00:07 | disposition home or self-care (01) ==
LOC: E/R 18:25
DX: K29.20 Alcoholic gastritis without bleeding (principal)
CPT/HCPCS: 74177; 80053; 80306; 82150; 83690; 84484; 85025; 85610; 85730; 93005; 96374; 96375; 96376; J1170; J2405; J3411; J3475; J7030; Q9967; Z7502; Z7610

== ENCOUNTER 2017-06-06 15:34 | Emergency (ER) | payer OTHER ==
[~2017-06-06] VITALS: Wt 110.0 kg
[~2017-06-06 15:34] MED LIST changes: +NAPR-260 PO
[2017-06-06] MEDS ORDERED: HYDROmorphONE 1 MG/ML SYG IV STA (16:27)
[2017-06-06] MEDS ORDERED: ONDANSETRON 4 MG INJ IV STA (16:27)
[2017-06-06] MEDS ORDERED: SOD CHLORIDE 0.9% 1,000 ML IV STA (16:27)
[2017-06-06] MEDS ORDERED: FAMOTIDINE 20 MG INJ IV STA (16:27)
[2017-06-06 17:00] VITALS: BP 164/87
[2017-06-06 17:10] LABS: BASOPHILS % 0.1 % (0.0-2.0); HEMATOCRIT 40.3 % (42.0-52.0); HEMOGLOBIN 13.2 g/dl (14.0-18.0); LYMPHOCYTES # 0.8 10^3/ul (0.8-2.9); LYMPHOCYTES % 7.6 % (15.0-51.0); MEAN CORPUSCULAR HEMOGLOBIN 28.1 pg (29.0-33.0); MEAN CORPUSCULAR HGB CONC 32.8 g/dl (32.0-37.0); MEAN CORPUSCULAR VOLUME 85.7 fl (82.0-101.0); MEAN PLATELET VOLUME 9.7 fl (7.4-10.4); MONOCYTE # 0.4 10^3/ul (0.3-0.9); MONOCYTES % 3.7 % (0.0-11.0); NEUTROPHIL # 9.7 10^3/ul (1.6-7.5); NEUTROPHILS % 88.2 % (39.0-77.0); PLATELET COUNT 301 10^3/UL (140-415); RED CELL DISTRIBUTION WIDTH 13.2 % (11.5-14.5)
[2017-06-06 17:29] LABS: ALBUMIN 4.6 g/dl (3.3-4.9); ALBUMIN/GLOBULIN RATIO 1.12; BILIRUBIN,INDIRECT 0.9 mg/dl (0-1.1); BILIRUBIN,TOTAL 0.9 mg/dl (0.2-1.3); CALCIUM 9.9 mg/dl (8.4-10.2); CREATININE 0.84 mg/dl (0.61-1.24); POTASSIUM 4.1 mmol/L (3.5-5.1); TOTAL PROTEIN 8.7 g/dl (6.1-8.1)
[2017-06-06] MEDS ORDERED: ONDA8TAB14 PO (18:21)
[2017-06-06] MEDS ORDERED: FAMO-96 PO (18:21)
[2017-06-06] MEDS ORDERED: HYDR-906 PO (18:21)
--- NOTE | 2017-06-06 18:26 | ERD ---
ER Documentation Chief Complaint Chief Complaint ABD PAIN, VOMITING, STATES ATE SOMETHING BAD DURING FLIGHT HPI 31-year-old male presents with sudden onset of abdominal pain and vomiting. Started during a plane flight from [place]. History significant for drinking alcohol and eating a frog. Patient has at least 3 visits here in the past year for epigastric pain and vomiting diagnosis of alcoholic gastritis. Patient denies fevers, blood, diarrhea. ROS All systems reviewed and are negative except as per history of present illness. Medications Home Meds Active Scripts Hydrocodone/Acetaminophen ([place] 5-325 Tablet) 1 Each Tablet, 1 TAB PO Q6H Y for PAIN, #7 TAB Prov:JARAD NORRIS MD 06/06/17 Famotidine* (Pepcid*) 20 Mg Tablet, 20 MG PO BID for 14 Days, #30 TAB Prov:JARAD NORRIS MD 06/06/17 Ondansetron (Ondansetron Odt) 8 Mg Tab.rapdis, 8 MG PO Q6H Y for NAUSEA AND/OR VOMITING, #10 TAB Prov:JARAD NORRIS MD 06/06/17 Naproxen* (Naprosyn*) 500 Mg Tablet, 500 MG PO BID Y for PAIN AND/OR INFLAMMATION, #20 TAB Prov:OLEG VELEZ 05/17/17 Ondansetron (Ondansetron Odt) 4 Mg Tab.rapdis, 4 MG PO Q6H Y for NAUSEA AND/OR VOMITING, #20 TAB Prov:OLEG VELEZ 05/17/17 Electrolyte,Oral (Pedialyte) 1,000 Ml Solution, 100 ML PO Q6 Y for VOMITTING, # 1000 ML Prov:ABBIE JEFFRIES PA-C 01/31/17 Famotidine* (Pepcid*) 20 Mg Tablet, 20 MG PO BID for 14 Days, TAB Prov:ABBIE JEFFRIES PA-C 01/31/17 Ondansetron Hcl* (Zofran*) 4 Mg Tablet, 4 MG PO Q6H for NAUSEA AND/OR VOMITING, #30 TAB Prov:ABBIE JEFFRIES PA-C 01/31/17 Acetaminophen* (Tylophen*) 500 Mg Capsule, 1 CAP PO Q6H Y for PAIN AND OR ELEVATED TEMP, #30 CAP Prov:ABBIE JEFFRIES PA-C 01/31/17 Diphenoxylate HCl/Atropine (Lomotil 2.5-0.025 mg Tablet) 1 Each Tablet, 1 TAB PO QID Y for DIARRHEA, #10 TAB Prov:ZHANG NICOLAS DO 09/29/16 Ondansetron (Ondansetron Odt) 4 Mg Tab.rapdis, 4 MG PO Q6H Y for NAUSEA AND/OR VOMITING, #10 TAB Prov:ZHANG NICOLAS DO 09/29/16 Hydrocodone/Acetaminophen ([place] 10-325 Tablet) 1 Each Tablet, 1 TAB PO Q6H Y for PAIN, #20 TAB Prov:ZHANG NICOLAS DO 09/29/16 Clobetasol Propionate* (Clobetasol Propionate*) 60 Gm Cream.gm., 1 APPLIC TOP BID, #1 TUB Prov:PAVITHRA HOOD PA-C 03/13/16 Metronidazole* (Flagyl*) 500 Mg Tablet, 500 MG PO TID for 10 Days, TAB Prov:PAVITHRA HOOD PA-C 03/13/16 Ciprofloxacin Hcl* (Ciprofloxacin Hcl*) 500 Mg Tablet, 500 MG PO BID for 10 Days , TAB Prov:PAVITHRA HOOD PA-C 03/13/16 Ondansetron Hcl* (Zofran*) 4 Mg Tablet, 4 MG PO Q6H for NAUSEA AND/OR VOMITING, #30 TAB Prov:PAVITHRA HOOD PA-C 03/13/16 Hydrocodone/Acetaminophen ([place] 5-325 Tablet) 1 Each Tablet, 1 TAB PO Q6H Y for PAIN, #7 TAB Prov:PAVITHRA HOOD PA-C 03/13/16 Allergies Allergies: Coded Allergies: amoxicillin (Verified Allergy, Severe, 06/06/17) Penicillins (Verified Allergy, Unknown, anaphalix, 09/29/16) PMhx/Soc Medical and Surgical Hx: pt denies Surgical Hx History of Surgery: No Anesthesia Reaction: No Hx Neurological Disorder: No Hx Respiratory Disorders: No Hx Cardiac Disorders: No Hx Psychiatric Problems: No Hx Miscellaneous Medical Probl: No Hx Alcohol Use: Yes (Beer daily, 24-48 oz, & hard alcohol qod) Hx Substance Use: Yes (mariuana) Hx Tobacco Use: Yes (jennyferjuna) Smoking Status: Current every day smoker Physical Exam Vitals Vital Signs Date Time Temp Pulse Resp B/P Pulse Ox O2 Delivery O2 Flow Rate FiO2 06/06/17 17:00 164/87 06/06/17 15:38 98.2 83 18 169/92 100 Physical Exam Const: [] Uncomfortable, actively vomiting. Head: Atraumatic Eyes: Normal Conjunctiva are nonicteric. ENT: Normal External Ears, Nose and Mouth. Neck: Full range of motion..~ No meningismus. Resp: Clear to auscultation bilaterally Cardio: Regular rate and rhythm, no murmurs Abd: Soft, difficult exam, mild generalized tenderness. No appreciable focal tenderness, masses or rebound. non distended. Normal bowel sounds Skin: No petechiae or rashes Back: No midline or flank tenderness Ext: No cyanosis, or edema Neur: Awake and alert Psych: Normal Mood and Affect Result Diagram: 06/06/17 1645 06/06/17 1645 Results 24 hrs Laboratory Tests Test 06/06/17 16:45 White Blood Count 11.010^3/ul Red Blood Count 4.7010^6/ul Hemoglobin 13.2g/dl Hematocrit 40.3% Mean Corpuscular Volume 85.7fl Mean Corpuscular Hemoglobin 28.1pg Mean Corpuscular Hemoglobin Concent 32.8g/dl Red Cell Distribution Width 13.2% Platelet Count 62501^3/UL Mean Platelet Volume 9.7fl Neutrophils % 88.2% Lymphocytes % 7.6% Monocytes % 3.7% Eosinophils % 0.0% Basophils % 0.1% Nucleated Red Blood Cells % 0.0/100WBC Neutrophils # 9.710^3/ul Lymphocytes # 0.810^3/ul Monocytes # 0.410^3/ul Eosinophils # 0.010^3/ul Basophils # 0.010^3/ul Nucleated Red Blood Cells # 0.010^3/ul Sodium Level 138mmol/L Potassium Level 4.1mmol/L Chloride Level 99mmol/L Carbon Dioxide Level 30mmol/L Anion Gap 13 Blood Urea Nitrogen 11mg/dl Creatinine 0.84mg/dl Glucose Level 120mg/dl Calcium Level 9.9mg/dl Total Bilirubin 0.9mg/dl Direct Bilirubin 0.00mg/dl Indirect Bilirubin 0.9mg/dl Aspartate Amino Transf (AST/SGOT) 41IU/L Alanine Aminotransferase (ALT/SGPT) 41IU/L Alkaline Phosphatase 64IU/L Total Protein 8.7g/dl Albumin 4.6g/dl Globulin 4.10g/dl Albumin/Globulin Ratio 1.12 Lipase 76U/L Current Medications Medications (Trade) Dose Ordered Sig/Adriana Route PRN Reason Start Time Stop Time Status Last Admin Dose Admin Sodium Chloride (NS) 1,000 ml @ 1,000 mls/hr Q1H STAT IV 06/06/17 16:27 06/06/17 17:26 DC 06/06/17 16:59 Hydromorphone HCl (Dilaudid) 1 mg ONCE STAT IV 06/06/17 16:27 06/06/17 16:29 DC 06/06/17 16:55 Ondansetron HCl (Zofran Inj) 4 mg ONCE STAT IV 06/06/17 16:27 06/06/17 16:29 DC 06/06/17 16:49 Famotidine (Pepcid Iv) 20 mg ONCE STAT IV 06/06/17 16:27 06/06/17 16:29 DC 06/06/17 16:49 Procedures/MDM IV was obtained. Patient was given 1 L normal saline IV, Zofran form of grams IV, Dilaudid 1 mg IV for acute pain. CBC shows minimal leukocytosis, slight anemia. CMP and lipase normal EKG: Rate/Rhythm: [Normal Sinus Rhythm] rate equals 65 QRS, ST, T-waves: [No changes consistent w/ acute ischemia] Impression: [No evidence of ischemia or arrhythmia]. Impression-no acute findings of ischemia or significant arrhythmia on EKG. Patient had a benign abdomen felt better after observation treatment. Patient presents with acute epigastric pain and vomiting without signs of acute abdomen , obstruction, signs to suggest appendicitis, additional emergent causes of presenting complaints. May have gastritis, or self-limited foodborne illness. We treated with Zofran, medication for pain, Pepcid, close observation and return precautions. Patient was advised to abstain from alcohol, marijuana, NSAIDs, spicy foods follow-up with primary doctor or return is recommended for new or worsening symptoms. The patient was stable with no new complaints during the ER course. Clinically, there is no current evidence to suggest meningitis, sepsis, acute abdomen, pneumonia, acute coronary syndrome, pulmonary embolism, or any other emergent condition appearing to require further evaluation or hospitalization. The patient should certainly return for any new or worsening symptoms per the aftercare instructions. They should otherwise follow-up with her primary care doctor for reevaluation this week. Departure Diagnosis: Primary Impression: Vomiting Vomiting type: unspecified Vomiting Intractability: unspecified Nausea presence: unspecified Qualified Code: R11.10 - Vomiting, intractability of vomiting not specified, presence of nausea not specified, unspecified vomiting type Additional Impression: Abdominal pain Abdominal location: unspecified location Qualified Code: R10.9 - Abdominal pain, unspecified abdominal location Condition: Stable Patient Instructions: Abdominal Pain, Foodborne Illness (Food Poisoning), Vomiting (6Y-Adult) Additional Instructions: Likely gastritis or self-limited foodborne illness. Recheck for vomiting despite treatment, fevers, blood, new or worsening symptoms. Avoid spicy foods , alcohol, ibuprofen or Naprosyn. Follow-up with primary doctor or recheck for new or worsening symptoms. JARAD NORRIS MD Jun 06, 2017 18:26
== END 2017-06-06 18:33 | disposition home or self-care (01) ==
LOC: FTE 15:34
DX: R11.10 Vomiting, unspecified (principal); F17.210 Nicotine dependence, cigarettes, uncomplicated; R10.84 Generalized abdominal pain
CPT/HCPCS: 36415; 80053; 83690; 85025; 96374; 96375; J1170; J2405; J7030; Z7502; Z7610

== ENCOUNTER 2017-10-12 05:00 | Emergency (ER) | END 2017-10-12 06:37 | disposition home or self-care (01) ==

== ENCOUNTER 2017-12-07 22:15 | Emergency (ER) | END 2017-12-07 22:59 | disposition left against medical advice (07) ==